=== PATIENT | male | born 1960 | race Caucasian/White ===

== ENCOUNTER 2022-11-10 13:45 | Observation (INO) | payer SELFPAY ==
[2022-11-10] VITALS (23 sets, daily range): BP systolic 103–128; BP diastolic 65–103
[2022-11-10 14:19] LABS: ALBUMIN 4.1 g/dL (3.2-5.0); ALKALINE PHOSPHATASE 60 u/l (38-126); ANION GAP 12 (6-22 (CALC)); BILIRUBIN, TOTAL 0.7 mg/dL (0.0-1.4); BUN 13 mg/dL (9-20); BUN/CREATININE RATIO 12 (12-20 (CALC)); CARBON DIOXIDE 22 mmol/l (22-30); CHLORIDE 106 mmol/l (95-108); CPK 82 u/l (52-200); CREATININE 1.1 mg/dL (0.7-1.3); GFR FOR AFR.AMER. > 60 ML/MIN (>=60 (CALC)); GFR OTHER RACES > 60 ML/MIN (>=60 (CALC)); POTASSIUM 4.2 mmol/l (3.5-5.1); SGOT/AST 26 u/l (17-59); SODIUM 135 mmol/l (137-146); TOTAL PROTEIN 7.1 g/dL (6.3-8.2)
[2022-11-10 14:22] LABS: BASO% 0.4 % (0-3); EOS% 0.4 % (0-8); HEMATOCRIT 38.7 % (39.0-50.0); HEMOGLOBIN 13.5 g/dl (14.0-18.0); IMMATURE GRANULOCYTES 0.3 % (0.0-5.0); LYMPH% 17.8 % (15-41); MEAN CORPUSCULAR HGB 33.8 pG CALC (26.0-32.0); MEAN CORPUSCULAR HGB CONC 34.9 g/dL CAL (32.0-36.0); MONO% 8.5 % (2-13); NEUT# 8.19 thou/uL (1.82-7.42); NEUT% 72.6 % (42-76); RED BLOOD COUNT 3.99 mill/uL (4.70-6.10)
[2022-11-10 15:46] LABS: URINE BILIRUBIN - DIPSTICK NEGATIVE (NEGATIVE); URINE BLOOD DIPSTICK NEGATIVE (NEGATIVE); URINE COLOR YELLOW; URINE GLUCOSE - DIPSTICK NEGATIVE (NEGATIVE); URINE KETONE 15 mg/dL (NEGATIVE); URINE LEUK ESTERASE NEGATIVE (NEGATIVE); URINE PH 7.5 (4.5-8.0); URINE PROTEIN - DIPSTICK NEGATIVE (NEG-TRACE)
[2022-11-10 15:51] LABS: URINE NITRITE - DIPSTICK NEGATIVE (Negative)
[2022-11-11] VITALS (7 sets, daily range): BP systolic 104–133; BP diastolic 65–82
[2022-11-11 05:54] LABS: MAGNESIUM 1.9 mg/dL (1.6-2.3)
== END 2022-11-11 13:06 | disposition home or self-care (01) | DRG 312 ==
LOC: ED 13:45 → ED-I 16:25 → ED 16:35 → MS2 16:36
PROVIDERS: Nurse Practitioner; ADMIT Internal Medicine; ATTEND Internal Medicine
DX: R55 Syncope and collapse (principal); Z23 Encounter for immunization; Z87.891 Personal history of nicotine dependence
CPT/HCPCS: G0378; J1650